=== PATIENT | male | born 1970 | race Hispanic/Latino ===

== ENCOUNTER 2020-11-29 14:07 | Emergency (ER) | payer SELFPAY ==
--- NOTE | 2020-11-29 14:21 | Emergency Department Report ---
Blank Doc - Documentation Documentation: 50-year-old male that presents with unable to swallow due to pork suck in epig astric area. Patient stated has history of 3 times with similar symptoms where he had to go to the OR for foreign body removal via endoscopy. 1- This is a initial triage assessment/medical screening only. Full assessment and work-up will be completed once the patient is in proper hospital gown, ED bed and in a private room setting. This initial assessment/diagnostic orders/clinical plan/ treatment(s) is/are subject to change based on pt's health status, clinical progression and re-assessment by fellow clinical providers in the ED. Further treatment and workup at subsequent clinical providers discretion. Patient/guardians urged not to elope from ED as their condition may be serious if not clinically assessed and managed. 2-labs 3-x-rays
--- NOTE | 2020-11-29 15:02 | XRay Report ---
ABDOMEN 4 VIEW(S) INDICATION / CLINICAL INFORMATION: unable to swallow rule out foreign body obstructio. COMPARISON: None available. FINDINGS: TUBES / LINES: None. BOWEL GAS PATTERN: No radiopaque foreign body identified. Nonobstructive bowel gas pattern. Prior cho lecystectomy and postoperative change in the right lower quadrant. FREE AIR / EXTRALUMINAL GAS: None seen. ADDITIONAL FINDINGS: No significant additional findings. IMPRESSION: 1. No significant abnormality. Signer Name: Dominic Kumar MD Signed: 11/29/2020 2:55 PM Workstation Name: [id number]
--- NOTE | 2020-11-29 15:02 | XRay Report ---
Soft tissue neck-2 views INDICATION: unable to swallow rule out foreign body obstruction. COMPARISON: None. IMPRESSION: Airway is widely patent with no radiopaque foreign body or soft tissue swelling identifi ed. Normal cervical spine alignment with no acute osseous abnormality. Mild lower cervical discogeni c DJD. Signer Name: Dominic Kumar MD Signed: 11/29/2020 2:55 PM Workstation Name: [id number]
[2020-11-29 15:25] LABS: Basophils # (Auto) 0.1 K/mm3 (0.0-0.1); Basophils % (Auto) 0.6 % (0.0-1.8); Eosinophils # (Auto) 0.6 K/mm3 (0.0-0.4); Eosinophils % (Auto) 6.3 % (0.0-4.3); Hemoglobin 16.2 gm/dl (11.8-15.2); Lymphocytes # (Auto) 1.5 K/mm3 (1.2-5.4); Mean Corpuscular HGB Conc 34 % (32-34); Mean Corpuscular Volume 91 fl (84-94); Monocytes # (Auto) 0.7 K/mm3 (0.0-0.8); Monocytes % (Auto) 7.5 % (0.0-7.3); Platelet Count 195 K/mm3 (140-440); Red Blood Count 5.14 M/mm3 (3.65-5.03)
[2020-11-29 17:10] LABS: Alanine Aminotransferase 45 units/L (7-56); Albumin 5.1 g/dL (3.9-5); BUN/Creatinine Ratio 16; Blood Urea Nitrogen 18 mg/dL (9-20); Hemolysis Index 15
--- NOTE | 2020-11-29 20:05 | Emergency Department Report ---
ED General Adult HPI - General Chief complaint: Sore Throat Stated complaint: Esophageal obstruction Time Seen by Provider: 11/29/20 14:13 Source: patient Mode of arrival: Ambulatory Limitations: No Limitations - History of Present Illness Initial comments: 50-year-old male presents to ED with food bolus impaction. Patient states he was eating some pulled pork for lunch at around noon, and states it became stuck at that time. Patient states he has tried drinking water, drinking Coca-Cola, without relief. States he vomited fluids. Patient reports this is happened twice in the past and he has required endoscopic removal. Patient states the last occurrence was 8 years ago. Patient states at that time he was advised to undergo esophageal dilatation but chose not to. States he has not had any episodes since 8 years ago. -: This afternoon Location: chest Severity scale (0 -10): 8 Quality: other (pressure) Consistency: constant Improves with: none Worsens with: other (Eating or drinking) Associated Symptoms: denies other symptoms - Related Data Home Medications Medication Instructions Recorded Confirmed Last Taken lisinopriL [Zestril] 20 mg PO QDAY 06/22/13 11/29/20 11/29/20 amLODIPine 10 mg PO DAILY 11/29/20 11/29/20 11/29/20 Allergies Allergy/AdvReac Type Severity Reaction Status Date / Time No Known Allergies Allergy Verified 11/29/20 20:13 ED Review of Systems ROS: Stated complaint: AIRWAY OBSTRUCTION Other details as noted in HPI Comment: All other systems reviewed and negative Gastrointestinal: as per HPI ED Past Medical Hx - Past Medical History Previous Medical History?: Yes Hx Hypertension: Yes - Surgical History Past Surgical History?: Yes Additional Surgical History: 8" of large and small intestine removed r/t diverticulitis - Social History Smoking Status: Never Smoker Substance Use Type: Alcohol - Medications Home Medications: Home Medications Medication Instructions Recorded Confirmed Last Taken Type lisinopriL [Zestril] 20 mg PO QDAY 06/22/13 11/29/20 11/29/20 History amLODIPine 10 mg PO DAILY 11/29/20 11/29/20 11/29/20 History ED Physical Exam - General Limitations: No Limitations General appearance: alert, in no apparent distress - Head Head exam: Present: atraumatic, normocephalic - Eye Eye exam: Present: normal appearance, EOMI - ENT ENT exam: Present: mucous membranes moist - Neck Neck exam: Present: normal inspection - Respiratory Respiratory exam: Present: normal lung sounds bilaterally. Absent: respiratory distress - Cardiovascular Cardiovascular Exam: Present: regular rate, normal rhythm - GI/Abdominal GI/Abdominal exam: Present: soft. Absent: distended, tenderness - Extremities Exam Extremities exam: Present: normal inspection - Neurological Exam Neurological exam: Present: alert, oriented X3 - Psychiatric Psychiatric exam: Present: normal affect, normal mood - Skin Skin exam: Present: warm, dry, intact, normal color ED Course Vital Signs 11/29/20 11/29/20 11/29/20 14:11 20:01 22:21 Temperature 97.8 F Pulse Rate 87 69 65 Respiratory 18 18 18 Rate Blood Pressure 128/79 131/85 123/75 [Right] O2 Sat by Pulse 94 95 95 Oximetry - Consultations Consultation #1: 11/29/20 20:24 Spoke with MARKEL Truong. Recommends transfer if no success with glucagon, since unable to scope overnight here at [facility]. 11/29/20 21:32 Attempted to contact [facility]. Transfer line states no beds available at any of their facilities. Will contact [facility]. 11/30/20 00:02 [facility] and pt may not need an actual bed. 11/30/20 01:10 [facility] States since pt is maintaining his airway, he does not need emergent endocscopy at this time. States if transferred to them, pt would still be scoped in the morning. 11/30/20 01:[address] Mccann again. I explained that I have been unsuccessful attempting to transfer the patient. Patient is stable, maintaining his airway. Since unsuccessful transfer, Dr. Mccann agrees patient can stay here and will be scoped in the morning. Pt is currently comfortable, asleep on stretcher, no distress. ED Medical Decision Making - Lab Data Result diagrams: 11/29/20 14:48 11/29/20 14:48 - Radiology Data Radiology results: report reviewed, image reviewed - Medical Decision Making 50-year-old male presents to ED with impacted food bolus. History of same in the past. Patient reports he was eating pulled pork for lunch. Began having difficulty swallowing around 12 noon. No relief with drinking water, Coca-Cola. No relief with glucagon. Patient is stable, airway is intact. Patient is currently resting comfortably in no acute distress. Initially spoke with GI on- call here at [facility], Dr. Mccann, who recommended patient be transferred for emergent endoscopy, as she is unable to perform endoscopy overnight. Patient will have to wait until the morning if he stays here. However, unable to get an accepting physician as most of the local hospitals are on diversion. Also spoke with a local GI physician who stated that patient would still be scoped in the morning at their facility because he is stable. I spoke again with Dr. Mccann to explain the status of patient's transfer. Agrees to scope patient here in the morning. - Differential Diagnosis Impacted food bolus Critical care attestation.: If time is entered above; I have spent that time in minutes in the direct care of this critically ill patient, excluding procedure time. ED Disposition Clinical Impression: Esophageal obstruction due to food impaction Disposition: OP ADMIT IP TO THIS HOSP Is pt being admited?: Yes Condition: Stable Referrals: PRIMARY CARE, [Primary Care Provider] - 3-5 Days Time of Disposition: 01:16
[2020-11-29] MEDS ORDERED: GLUCAGON (HUMAN RECOMBINANT) 1 MG/ML INJ IV ONE (20:19)
[2020-11-29] MEDS ORDERED: MORPHINE 2 MG/1 ML INJ IV ONE (22:41)
[2020-11-30] MEDS ORDERED: MORPHINE 2 MG/1 ML INJ IV PRN (01:36)
[2020-11-30 08:35] VITALS: BP 117/70
== END 2020-11-30 10:41 | disposition home or self-care (01) ==
LOC: ED 14:07
DX: K22.2 Esophageal obstruction (principal); I10 Essential (primary) hypertension; Z98.890 Other specified postprocedural states; Z79.899 Other long term (current) drug therapy; Z72.89 Other problems related to lifestyle; Z88.8 Allergy status to other drugs, medicaments and biological substances
CPT/HCPCS: 36415; 70360; 74022; 80053; 85025; 96374; 96375; 96376; 99284; J1610; J2270